=== PATIENT | male | born 1980 | race Caucasian/White ===

== ENCOUNTER 2018-04-21 13:41 | Emergency (ER) | payer OTHER ==
[~2018-04-21] VITALS: Ht 180.3 cm; Wt 124.7 kg
[2018-04-21 14:01] VITALS: BP 138/85
--- NOTE | 2018-04-21 14:18 | PHYS DOC ---
Past Medical History Past Medical History: Hypertension Past Surgical History: Tonsillectomy, Other Additional Past Surgical Histo: RIGHT SHOULDER Alcohol Use: None Drug Use: None Adult General Chief Complaint Chief Complaint: LOWER EXT PAIN HPI HPI Patient is a 38 year old male who presents to the emergency room with complaints of left mid calf pain. Patient states he was starting to climb a ladder at work when he felt something pop in the back of his left leg. Patient states it was almost as if he was shot in the back of the leg. Patient states that the incident happened when he was pushing off the ladder to go up the next rung with his left foot. He denies any numbness, or tingling of the left lower extremity. States that the pain increased when the area is touched or when he ambulates. He denies any fall or known injury to the area. Currently, he rates his pain as a 6/10, he did not take anything for relief of pain prior to arrival. Review of Systems Review of Systems Constitutional: Denies fever or chills [] Musculoskeletal: Denies back pain or joint pain; see HPI [] Integument: Denies rash or skin lesions [] Neurologic: Denies headache, focal weakness or sensory changes [] All other systems were reviewed and found to be within normal limits, except as documented in this note. Current Medications Current Medications Current Medications Medications (Trade) Dose Ordered Sig/Rachel Start Time Stop Time Status Last Admin Dose Admin Acetaminophen/ Hydrocodone Bitart (Lortab 5/325) 2 tab 1X ONCE 04/21/18 17:15 04/21/18 17:16 DC 04/21/18 17:15 2 TAB Allergies Allergies Allergies Coded Allergies Type Severity Reaction Last Updated Verified No Known Drug Allergies 04/21/18 No Physical Exam Physical Exam Constitutional: Well developed, well nourished, no acute distress, non-toxic appearance, obese. [] HENT: Normocephalic, atraumatic, bilateral external ears normal, nose normal. [] Eyes: PERRLA, conjunctiva normal, no discharge. [] Skin: Warm, dry, no erythema, no rash. [] Extremities: No cyanosis, no clubbing, ROM intact, no edema; Left medial calf tenderness to palpation, no deformity, 2+ pedal and posterior tibial pulses of LLE, full flexion and extension of Left foot/ankle. [] Neurologic: Alert and oriented X 3, normal motor function, normal sensory function, no focal deficits noted. [] Psychologic: Affect normal, judgement normal, mood normal. [] Current Patient Data Vital Signs Vital Signs Date Time Temp Pulse Resp B/P (MAP) Pulse Ox O2 Delivery O2 Flow Rate FiO2 04/21/18 17:15 20 04/21/18 14:01 98.2 100 138/85 (102) 98 Room Air 98.2 EKG EKG [] Radiology/Procedures Radiology/Procedures PROCEDURE: EXT NON VASC LEFT Examination: EXT NON VASC LEFT History: LT POST CALF PAIN Comparison/Correlation: None Findings: Ultrasound imaging of the left posterior calf region was performed. No collections are identified. No masses defined. Visualized musculature is grossly unremarkable. The Achilles tendon region was not imaged for purposes of this exam. Impression: The left posterior calf is unremarkable. [] Course & Med Decision Making Course & Med Decision Making Pertinent Labs and Imaging studies reviewed. (See chart for details) [] Dragon Disclaimer Dragon Disclaimer This electronic medical record was generated, in whole or in part, using a voice recognition dictation system. Departure Departure Impression: Primary Impression: Gastrocnemius tendon rupture Disposition: HOME, SELF-CARE Condition: STABLE Referrals: BONNIE JUNIOR MD (PCP) ASHUTOSH KATHLEEN MD Patient Instructions: Medial Head Gastrocnemius Tear (Tennis Leg) with [facility]- [facility] Additional Instructions: Fill prescription(s) and use as directed. Recommend application of ice, elevation, and rest of affected extremity. Wear the splint that was placed until follow up appointment with Dr. Kathleen. Return to the ER if your symptoms worsen. Scripts Hydrocodone Bit/Acetaminophen (HYDROCODONE-APAP 5-325 ) 1 Each Tablet 1 TAB PO PRN Q6HRS PRN for PAIN for 3 Days, #12 TAB 0 Refills Prov: ELMO MATA [employer]ISH[employer]PERVISOR 04/21/18 Splinting Splinting : Location: E Hand-Made Type: orthoglass (posterior short leg) Pre-Proc Neuro Vasc Exam: normal Post-Proc Neuro Vasc Exam: normal, unchanged from pre-exam Problem Qualifiers Primary Impression: Gastrocnemius tendon rupture Encounter type: initial encounter Laterality: left Qualified Codes: S86.112A - Strain of other muscle(s) and tendon(s) of posterior muscle group at lower leg level, left leg, initial encounter ELMO MATA APRN Apr 21, 2018 14:18
--- NOTE | 2018-04-21 16:39 | RAD ---
Examination: EXT NON VASC LEFT History: LT POST CALF PAIN Comparison/Correlation: None Findings: Ultrasound imaging of the left posterior calf region was performed. No collections are identified. No masses defined. Visualized musculature is grossly unremarkable. The Achilles tendon region was not imaged for purposes of this exam. Impression: The left posterior calf is unremarkable. Electronically signed by: Nilo Sawyer MD (04/21/2018 4:36 PM) [facility]
[2018-04-21] MEDS ORDERED: HYDR-2758 PO (17:05)
[2018-04-21] MEDS ORDERED: HYDROcodone/APAP 5/325MG 1 TAB TABLET PO ONE (17:15)
== END 2018-04-21 17:56 | disposition home or self-care (01) ==
LOC: ER 13:41
DX: S86.112A Strain of other muscle(s) and tendon(s) of posterior muscle group at lower leg level, left leg, initial encounter (principal); I10 Essential (primary) hypertension; X50.9XXA Other and unspecified overexertion or strenuous movements or postures, initial encounter; Y93.39 Activity, other involving climbing, rappelling and jumping off; Y92.89 Other specified places as the place of occurrence of the external cause; Y99.0 Civilian activity done for income or pay
CPT/HCPCS: 29515; 76881; 99284

== ENCOUNTER → 2018-05-20 | Outpatient (CLI) | payer OTHER ==
[2018-04-21 14:01] VITALS: BP 138/85
[~2018-05-20] MED LIST: HYDR-2761 PO
--- NOTE | 2018-05-20 15:25 | RAD ---
LEFT LOWER EXTREMITY ULTRASOUND WITH DOPPLER 05/20/2018 2:38 PM Clinical Information: Left calf pain Comparison: None. Technique: Multiple grayscale, color Doppler, and spectral Doppler sonographic images of the lower extremity venous structures were obtained. Findings: Greater saphenous vein is patent. The left common femoral, femoral, and popliteal veins exhibit normal compression, respiratory phasicity, and augmentation. No intraluminal thrombi are identified. Color Doppler flow is demonstrated in the left peroneal and gastrocnemius veins. No Momin's cyst is identified. No suspicious abnormality identified in the area of patient's pain in the posterior mid calf. Impression: 1. No evidence of deep venous thrombosis. Electronically signed by: Tanya Peres MD (05/20/2018 3:21 PM) [id number]
== END | disposition home or self-care (01) ==
LOC: US 14:24
PROVIDERS: ATTEND Orthopaedic Surgery
DX: M79.662 Pain in left lower leg (principal)
CPT/HCPCS: 93971